=== PATIENT | male | born 1965 | race Caucasian/White ===

== ENCOUNTER → 2016-11-28 | Outpatient (CLI) | payer BC | LOC: SUN.DIA 08:44 | DX: E11.65 Type 2 diabetes mellitus with hyperglycemia (principal); E11.40 Type 2 diabetes mellitus with diabetic neuropathy, unspecified; E66.9 Obesity, unspecified; Z68.43 Body mass index [BMI] 50.0-59.9, adult; Z71.3 Dietary counseling and surveillance; E78.5 Hyperlipidemia, unspecified; I10 Essential (primary) hypertension; G47.30 Sleep apnea, unspecified | CPT/HCPCS: G0108 ==

== ENCOUNTER → 2016-12-28 | Outpatient (CLI) | payer BC | LOC: SUN.DIA 10:20 | DX: E11.40 Type 2 diabetes mellitus with diabetic neuropathy, unspecified (principal); Z79.4 Long term (current) use of insulin; E78.5 Hyperlipidemia, unspecified; I10 Essential (primary) hypertension; E66.9 Obesity, unspecified; Z71.3 Dietary counseling and surveillance | CPT/HCPCS: G0108 ==

== ENCOUNTER → 2017-01-22 | Outpatient (REF) | LOC: ZLAB.WCH 10:26 | DX: Z01.89 Encounter for other specified special examinations (principal) ==

== ENCOUNTER → 2017-01-24 | Outpatient (REF) | LOC: ZLAB.WCH 18:03 | DX: Z01.89 Encounter for other specified special examinations (principal) ==

== ENCOUNTER 2017-08-28 17:13 | Observation (INO) | payer OTHER ==
[~2017-08-28] VITALS: Ht 180.3 cm; Wt 179.2 kg
[2017-08-28 17:55] LABS: BASO % 0.4 % (0.0-2.0); EOS # 0.2 (0.0-0.7); EOS % 1.5 % (0-4.0); GRAN # 7.4 (1.4-6.5); GRAN % 69.6 % (42.2-75.2); HEMATOCRIT 47.6 % (42.0-52.0); HEMOGLOBIN 15.5 g/dl (13.5-18.0); MEAN CELL VOLUME 88 fl (80.0-100.0); MEAN CORPUSCULAR HEMOGLOBIN 29 pg (27.0-31.0); MEAN CORPUSCULAR HGB CONC 33 g/dl (33.0-37.0); MEAN PLATELET VOLUME 9.6 fl (7.4-10.4); MONO # 0.9 (0.1-0.6); MONO % 8.9 % (1.7-9.3); PLATELET COUNT 204 K/mm3 (130-400); RED BLOOD COUNT 5.39 M/mm3 (4.20-5.60); REDCELL DISTRIBUTION WIDTH-CV 14.9 % (11.5-14.5)
[2017-08-28 18:08] LABS: ALBUMIN 4.6 gm/dL (3.5-5.0); BILIRUBIN,TOTAL 0.7 mg/dL (0.0-1.0); C-REACTIVE PROTEIN 2.5 mg/dL (0.0-0.9); CALCIUM 9.3 mg/dL (8.4-10.2); CREATININE, serum 1.11 mg/dL (0.66-1.25); POTASSIUM 4.3 mmol/L (3.4-5.0); TOTAL PROTEIN 7.5 gm/dL (6.4-8.2)
[2017-08-28] MEDS ORDERED: GLUCOPHAGE1000 MG PO (19:27)
[2017-08-28] MEDS ORDERED: DIABETA 5MG5 MG/TAB PO (19:28)
[2017-08-28] MEDS ORDERED: LEVEMIR FLEX100 U/ML SQ (19:28)
[2017-08-28] MEDS ORDERED: VICTOZA6 MG/ML SQ (19:28)
[2017-08-28] MEDS ORDERED: COREG 3.123.125 MG/T PO (19:28)
[2017-08-28] MEDS ORDERED: LIPITOR 40MG TA40 MG PO (19:29)
[2017-08-28] MEDS ORDERED: ZESTORETIC 25 M1 TAB PO (19:30)
[2017-08-29] VITALS (12 sets, daily range): BP systolic 115–149; BP diastolic 56–85; PULSE 66–94; TEMP 97.6–99.1
[2017-08-29] MEDS ORDERED: NORCO 325 MG-7.1 TAB PO (12:39)
== END 2017-08-29 15:05 | disposition home or self-care (01) ==
LOC: COL.ER 17:13 → SURG 19:47
PROVIDERS: Emergency Medicine
DX: K42.0 Umbilical hernia with obstruction, without gangrene (principal); E11.9 Type 2 diabetes mellitus without complications; Z79.4 Long term (current) use of insulin; Z88.0 Allergy status to penicillin; E66.01 Morbid (severe) obesity due to excess calories; Z68.43 Body mass index [BMI] 50.0-59.9, adult; I10 Essential (primary) hypertension; Z87.891 Personal history of nicotine dependence; G47.33 Obstructive sleep apnea (adult) (pediatric)
CPT/HCPCS: C1781; J0171; J0330; J1815; J2270; J2405; J2704; J2765; J3010; J7030; Q9967